=== PATIENT | male | born 1955 | race Caucasian/White ===

== ENCOUNTER 2017-02-11 18:32 | Emergency (ER) | payer OTHER ==
[~2017-02-11] VITALS: Ht 175.3 cm; Wt 102.5 kg
[2017-02-11 19:42] LABS: HEMATOCRIT 42.5 % (38.0-50.0); MCHC 33.9 G/DL (30.0-36.0); MCV 91.6 FL (86-99); MEAN PLAT.VOLUME 9.5 uM^3 (9.0-12.4); PLATELET COUNT 220 K/uL (156-360); RBC DIS.WIDTH-CV 13.2 % (11.8-14.6); RBC DIS.WIDTH-SD 44.8 % (39-53); RED BLOOD COUNT 4.64 M/uL (4.00-5.50); WHITE BLOOD COUNT 9.2 K/uL (4.1-10.2)
[2017-02-11 19:50] LABS: CHLORIDE 103 mEq/L (99-109); POTASSIUM 3.4 mEq/L (3.7-5.4)
[2017-02-11 19:51] LABS: SODIUM 139 mEq/L (136-147)
[2017-02-11 19:53] LABS: GLUCOSE 89 mg/dL (70-99)
[2017-02-11 19:54] LABS: ANION GAP 11 MEQ/L (2-14)
[2017-02-11 19:55] LABS: TOTAL BILIRUBIN 0.4 mg/dL (0.0-1.0)
[2017-02-11 19:56] LABS: ALKALINE PHOSPHATASE 66 IU/L (3-129); GFR ESTIMATE (CALCULATED) > 59 mL/min/
[2017-02-11 19:58] LABS: UREA NITROGEN (BUN) 13 mg/dL (9-23)
[2017-02-11 20:08] LABS: TROP-I INTERPRETATION NEGATIVE; TROPONIN-I < 0.01 ng/mL (0.0-0.30)
[2017-02-11] MEDS ORDERED: PANTOPRAZOLE SO40 MG PO (20:16)
[2017-02-11] MEDS ORDERED: FUROSEMIDE40 MG PO (20:16)
[2017-02-11] MEDS ORDERED: PRAMIPEXOLE DIHY1 MG PO (20:17)
[2017-02-11] MEDS ORDERED: METOPROLOL SUCC50 MG PO (20:18)
[2017-02-11] MEDS ORDERED: ASPIR 8181 M1 PO (20:18)
[2017-02-11] MEDS ORDERED: PRAVASTATIN SOD80 MG PO (20:18)
[2017-02-11] MEDS ORDERED: PRAZOSIN HCL1 MG PO (20:20)
[2017-02-11] MEDS ORDERED: HYDROXYZINE PAM50 MG PO (20:21)
[2017-02-11] MEDS ORDERED: SERTRALINE HCL100 MG PO (20:21)
[2017-02-11 21:57] VITALS: BP 121/83
== END 2017-02-11 22:00 | disposition home or self-care (01) ==
LOC: EME 18:32
PROVIDERS: Emergency Medicine
DX: S56.911A Strain of unspecified muscles, fascia and tendons at forearm level, right arm, initial encounter (principal); S50.11XA Contusion of right forearm, initial encounter; S50.811A Abrasion of right forearm, initial encounter; E87.6 Hypokalemia; V47.0XXA Car driver injured in collision with fixed or stationary object in nontraffic accident, initial encounter; Y92.481 Parking lot as the place of occurrence of the external cause; I10 Essential (primary) hypertension; K21.9 Gastro-esophageal reflux disease without esophagitis; F17.200 Nicotine dependence, unspecified, uncomplicated
CPT/HCPCS: 80053; 84484; 85027; 93005; 99281; 99285

== ENCOUNTER → 2017-11-17 | Outpatient (CLI) | payer OTHER ==
[~2017-11-17] MED LIST: ASPIR 8181 M1 PO; FUROSEMIDE40 MG PO; HYDROXYZINE PAM50 MG PO; METOPROLOL SUCC50 MG PO; PANTOPRAZOLE SO40 MG PO; PRAMIPEXOLE DIHY1 MG PO; PRAVASTATIN SOD80 MG PO; PRAZOSIN HCL1 MG PO; SERTRALINE HCL100 MG PO
== END | disposition home or self-care (01) ==
LOC: RAD 12:38
DX: R09.1 Pleurisy (principal)
CPT/HCPCS: 71046

== ENCOUNTER 2017-12-21 20:41 | Inpatient (IN) | payer OTHER ==
[~2017-12-21] VITALS: Ht 175.3 cm; Wt 97.2 kg
[2017-12-21 21:36] LABS: HEMATOCRIT 43.4 % (38.0-50.0); HEMOGLOBIN 14.8 G/DL (12.5-16.6); MCH 31.4 PG (29.0-34.0); MCHC 34.1 G/DL (30.0-36.0); MCV 92.1 FL (86-99); PLATELET COUNT 199 K/uL (156-360); RBC DIS.WIDTH-CV 12.7 % (11.8-14.6); RBC DIS.WIDTH-SD 42.9 % (39-53); RED BLOOD COUNT 4.71 M/uL (4.00-5.50); WHITE BLOOD COUNT 9.5 K/uL (4.1-10.2)
[2017-12-21 21:48] LABS: ALBUMIN 4.4 g/dL (3.2-4.8); CHLORIDE 98 mEq/L (99-109); SODIUM 138 mEq/L (136-147)
[2017-12-21 21:50] LABS: GLUCOSE 102 mg/dL (70-99); TOTAL PROTEIN 6.7 g/dL (6.4-8.3)
[2017-12-21 21:52] LABS: TOTAL BILIRUBIN 0.6 mg/dL (0.0-1.0)
[2017-12-21 21:54] LABS: ALKALINE PHOSPHATASE 77 IU/L (3-129); CREATININE 1.1 mg/dL (0.6-1.3); GFR ESTIMATE (CALCULATED) > 59 mL/min/ (58.99-99999)
[2017-12-21 21:55] LABS: UREA NITROGEN (BUN) 14 mg/dL (9-23)
[2017-12-21 21:56] LABS: AST (GOT) 16 IU/L (2-34)
[2017-12-21 21:57] LABS: ALT (GPT) 17 IU/L (3-49)
[2017-12-21 21:58] LABS: TROP-I INTERPRETATION NEGATIVE; TROPONIN-I 0.01 ng/mL (0.0-0.30)
[2017-12-21] MEDS ORDERED: LASIX40 MG PO (23:14)
[2017-12-21] MEDS ORDERED: PERCOCET 5/31 TABLET PO (23:17)
[2017-12-21] MEDS ORDERED: NEURONTIN300 MG PO (23:17)
[2017-12-21] MEDS ORDERED: VENTOLIN HFA18 GM IH (23:17)
[2017-12-21] MEDS ORDERED: TYLENOL EXTRA500 MG PO (23:18)
[2017-12-21] MEDS ORDERED: TRILEPTAL150 MG PO (23:18)
[2017-12-21] MEDS ORDERED: PROZAC20 MG PO (23:18)
[2017-12-21] MEDS ORDERED: MOBIC15 MG PO (23:18)
[2017-12-21 23:36] VITALS: BP 142/81
[2017-12-22 00:19] LABS: HDL CHOLESTEROL 36 MG/DL (Desirable>=40); LDL CHOLESTEROL 101 mg/dL (Desirable<100); NON-HDL CHOLESTEROL 145 mg/dL (Desirable<160); TOTAL CHOLESTEROL 181 mg/dL (Desirable<200); TRIGLYCERIDES 221 MG/DL (Normal: <150)
[2017-12-22 03:30] VITALS: BP 137/85
[2017-12-22 07:25] VITALS: BP 156/80
[2017-12-22 10:29] LABS: HEMOGLOBIN A1c (GLYCOHEMOGLOB) 5.2 % (Below 5.7)
[2017-12-22 12:21] VITALS: BP 137/70
[2017-12-22 23:49] VITALS: BP 129/92
[2017-12-23 03:38] VITALS: BP 147/87
[2017-12-23 05:44] LABS: BASOPHIL (%) 0.5 % (0-1); EOSINOPHIL (%) 1.3 % (0-5); HEMATOCRIT 41.3 % (38.0-50.0); HEMOGLOBIN 13.7 G/DL (12.5-16.6); IMMATURE GRANULOCYTE (%) 0.5 % (0.0-0.7); LYMPHOCYTE (%) 28.3 % (15-42); MCH 30.2 PG (29.0-34.0); MCHC 33.2 G/DL (30.0-36.0); MCV 91.2 FL (86-99); MONOCYTE (%) 6.8 % (3-12); NEUTROPHIL (%) 62.6 % (45-76); PLATELET COUNT 199 K/uL (156-360); RBC DIS.WIDTH-CV 12.4 % (11.8-14.6); RBC DIS.WIDTH-SD 41.2 % (39-53); RED BLOOD COUNT 4.53 M/uL (4.00-5.50); WHITE BLOOD COUNT 9.9 K/uL (4.1-10.2)
[2017-12-23 05:45] LABS: BASOPHIL COUNT 0.1 K/uL (0-0.1); EOSINOPHIL COUNT 0.1 K/uL (0-0.3); LYMPHOCYTE COUNT 2.8 K/uL (1.0-2.8); MONOCYTE COUNT 0.7 K/uL (0-0.8); NEUTROPHIL COUNT 6.2 K/uL (1.8-6.4)
[2017-12-23 06:05] LABS: CHLORIDE 106 MEQ/L (99-109); CREATININE 0.9 MG/DL (0.6-1.3); GFR ESTIMATE (CALCULATED) > 59 mL/min/ (58.99-99999); GLUCOSE 98 mg/dL (70-99); POTASSIUM 3.6 MEQ/L (3.7-5.4); SODIUM 140 MEQ/L (136-147); UREA NITROGEN (BUN) 13 mg/dL (9-23)
[2017-12-23 07:27] VITALS: BP 134/88
[2017-12-23 12:04] VITALS: BP 160/94
[2017-12-23 15:53] VITALS: BP 147/67
[2017-12-23 20:15] VITALS: BP 155/81
[2017-12-23] MEDS ORDERED: TRAZODONE HCL50 MG PO (20:34)
[2017-12-24 00:04] VITALS: BP 104/60
[2017-12-24 03:57] VITALS: BP 127/66
[2017-12-24 06:05] LABS: BASOPHIL (%) 0.8 % (0-1); BASOPHIL COUNT 0.1 K/uL (0-0.1); EOSINOPHIL (%) 1.4 % (0-5); EOSINOPHIL COUNT 0.1 K/uL (0-0.3); HEMATOCRIT 41.9 % (38.0-50.0); IMMATURE GRANULOCYTE (%) 0.4 % (0.0-0.7); LYMPHOCYTE (%) 27.4 % (15-42); LYMPHOCYTE COUNT 2.3 K/uL (1.0-2.8); MCH 30.4 PG (29.0-34.0); MCHC 33.4 G/DL (30.0-36.0); MCV 90.9 FL (86-99); MONOCYTE (%) 5.1 % (3-12); MONOCYTE COUNT 0.4 K/uL (0-0.8); NEUTROPHIL (%) 64.9 % (45-76); NEUTROPHIL COUNT 5.4 K/uL (1.8-6.4); PLATELET COUNT 188 K/uL (156-360); RBC DIS.WIDTH-CV 12.5 % (11.8-14.6); RBC DIS.WIDTH-SD 41.5 % (39-53); RED BLOOD COUNT 4.61 M/uL (4.00-5.50); WHITE BLOOD COUNT 8.3 K/uL (4.1-10.2)
[2017-12-24 06:25] LABS: CHLORIDE 105 MEQ/L (99-109); CREATININE 0.9 MG/DL (0.6-1.3); GFR ESTIMATE (CALCULATED) > 59 mL/min/ (58.99-99999); GLUCOSE 122 mg/dL (70-99); POTASSIUM 4.1 MEQ/L (3.7-5.4); SODIUM 139 MEQ/L (136-147); UREA NITROGEN (BUN) 15 mg/dL (9-23)
[2017-12-24 08:03] VITALS: BP 152/75
[2017-12-24 12:15] VITALS: BP 149/72
[2017-12-24 16:42] VITALS: BP 145/77
[2017-12-24 19:00] VITALS: BP 127/77
[2017-12-25 00:12] VITALS: BP 125/74
[2017-12-25 06:01] LABS: BASOPHIL (%) 0.9 % (0-1); BASOPHIL COUNT 0.1 K/uL (0-0.1); EOSINOPHIL COUNT 0.2 K/uL (0-0.3); HEMATOCRIT 40.9 % (38.0-50.0); HEMOGLOBIN 13.7 G/DL (12.5-16.6); IMMATURE GRANULOCYTE (%) 0.5 % (0.0-0.7); LYMPHOCYTE (%) 31.3 % (15-42); LYMPHOCYTE COUNT 2.4 K/uL (1.0-2.8); MCH 30.7 PG (29.0-34.0); MCHC 33.5 G/DL (30.0-36.0); MCV 91.7 FL (86-99); MONOCYTE (%) 7.4 % (3-12); MONOCYTE COUNT 0.6 K/uL (0-0.8); NEUTROPHIL (%) 57.9 % (45-76); NEUTROPHIL COUNT 4.4 K/uL (1.8-6.4); PLATELET COUNT 181 K/uL (156-360); RBC DIS.WIDTH-CV 12.6 % (11.8-14.6); RBC DIS.WIDTH-SD 42.5 % (39-53); RED BLOOD COUNT 4.46 M/uL (4.00-5.50); WHITE BLOOD COUNT 7.5 K/uL (4.1-10.2)
[2017-12-25 06:39] LABS: CHLORIDE 103 MEQ/L (99-109); CREATININE 1.1 MG/DL (0.6-1.3); GFR ESTIMATE (CALCULATED) > 59 mL/min/ (58.99-99999); GLUCOSE 96 mg/dL (70-99); POTASSIUM 4.3 MEQ/L (3.7-5.4); SODIUM 140 MEQ/L (136-147); UREA NITROGEN (BUN) 15 mg/dL (9-23)
[2017-12-25 07:36] VITALS: BP 130/81
[2017-12-25] MEDS ORDERED: CLOPIDOGREL75 MG PO (11:11)
[2017-12-25] MEDS ORDERED: ATORVASTATIN CA40 MG PO (11:12)
[2017-12-25 11:40] VITALS: BP 114/74
[2017-12-27 14:54] LABS: Protein S, Free 103 % normal (57-171)
[2017-12-30 11:05] LABS: ACTIVATED PROTEIN C RESIST+ 4.7 ratio (>=2.1); ANTITHROMBIN III ACTIVITY+ 116 (80-120); DRVVT Mixing Study Interp Not Indicated (()); FACTOR VIII ACTIVITY+ 204 % (50-180); PROTEIN C FUNCTIONAL ACTIVITY+ 200 % (70-180); PTT-LA 29 sec (<=40); Thrombosis Consult Level Limited (()); dRVVT Screen 40 sec (<=45)
== END 2017-12-25 14:44 | disposition home or self-care (01) | DRG 66 ==
LOC: EME 20:41 → ENRESERV 22:39 → 5WEST 22:39 → EDOF 22:39 → ENRESERV 22:51 → 5WEST 23:25 → ENPENDDIS 12-25 12:38 → 5WEST 12-25 14:44
PROVIDERS: Emergency Medicine; Hospitalist; Internal Medicine; Psychiatry & Neurology Clinical Neurophysiology
PROC: B24BZZ4 Ultrasonography of Heart with Aorta, Transesophageal (ICD-10-PCS; principal; 2017-12-24)
DX: I63.9 Cerebral infarction, unspecified (principal); E78.5 Hyperlipidemia, unspecified; K21.9 Gastro-esophageal reflux disease without esophagitis; I65.02 Occlusion and stenosis of left vertebral artery; J44.9 Chronic obstructive pulmonary disease, unspecified; R60.0 Localized edema; I10 Essential (primary) hypertension; I25.82 Chronic total occlusion of coronary artery; I25.10 Atherosclerotic heart disease of native coronary artery without angina pectoris; F17.210 Nicotine dependence, cigarettes, uncomplicated; E66.9 Obesity, unspecified; F43.10 Post-traumatic stress disorder, unspecified; Z79.82 Long term (current) use of aspirin; Z79.1 Long term (current) use of non-steroidal anti-inflammatories (NSAID); Z86.73 Personal history of transient ischemic attack (TIA), and cerebral infarction without residual deficits; Z68.31 Body mass index [BMI] 31.0-31.9, adult; Z79.899 Other long term (current) drug therapy; Z82.49 Family history of ischemic heart disease and other diseases of the circulatory system; Z80.9 Family history of malignant neoplasm, unspecified
CPT/HCPCS: 70450; 70496; 70498; 70551; 80048; 80053; 80061; 81240 90; 81241 90; 82607; 82948; 83036; 83090 90; 84484; 85025; 85027; 85240 90; 85300 90; 85303 90; 85305 90; 85306 90; 85613 90; 85652; 85730 90; 86146 90; 86147 90; 93005; 93306; 93320; 93325; 93880; 99281; 99285; C8925; G0378; G8978 GP CI; G8979 GP CH; G8987 GO CI; G8988 GO CH; J1650; J2060; J2765; J7512